=== PATIENT | female | born 1985 | race Caucasian/White ===

== ENCOUNTER 2022-06-11 16:03 | Emergency (ER) | payer MEDICAID ==
[~2022-06-11] VITALS: Ht 157.5 cm; Wt 95.3 kg
[2022-06-11 16:10] VITALS: BP 136/89
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
--- NOTE | 2022-06-11 18:15 | NUR ---
pt informing admitting that she needs a place to stay the night and is requesting to come in as a [id number]. denies any new si or intention to harm self/others. ermd made aware
--- NOTE | 2022-06-11 18:38 | NUR ---
per anni pérez, pt is not in lobby or outside. no answer at this time
--- NOTE | 2022-06-11 20:05 | NUR ---
Dr. Cohen examining patient.
[2022-06-11] MEDS ORDERED: MORPHINE SULFATE 4 MG/ML SYR IM ONE (20:10)
--- NOTE | 2022-06-11 20:10 | NUR ---
PT TAKEN TO BED 9
[2022-06-11] MEDS ORDERED: CYCL-711 PO (20:42)
--- NOTE | 2022-06-11 21:09 | NUR ---
repeatedly offered uber to pt and food. pt repeatedly becoming rude to me and other nurses and saying vulgar languages. pt taken to lobby per courtesy of other pt in ER's comfort level. pt provided with uber transport by [facility] [employer] [facility]. pt d/c with flexeril RX.
== END 2022-06-11 20:10 | disposition home or self-care (01) ==
LOC: MED 16:03
DX: M79.605 Pain in left leg (principal); M79.606 Pain in leg, unspecified; F17.200 Nicotine dependence, unspecified, uncomplicated; Z98.890 Other specified postprocedural states
CPT/HCPCS: 29515; 96372; 99283; J2270